=== PATIENT | female | born 1995 | race African-American/Black ===

== ENCOUNTER 2017-03-19 23:43 | Day surgery (SDC) | payer MEDICAID, SELFPAY ==
[2017-03-20 00:20] VITALS: BMI 38.2
[2017-03-20] MEDS ORDERED: Morphine 10 MG/ML VIAL SLOW IVP SCH (01:00)
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
== END 2017-03-20 05:25 | disposition home or self-care (01) ==
LOC: L&D/OP 23:43
PROVIDERS: ATTEND Obstetrics & Gynecology
DX: O9A.212 Injury, poisoning and certain other consequences of external causes complicating pregnancy, second trimester (principal); S39.91XA Unspecified injury of abdomen, initial encounter; Z79.899 Other long term (current) drug therapy; Z3A.25 25 weeks gestation of pregnancy; W22.8XXA Striking against or struck by other objects, initial encounter
CPT/HCPCS: 36415; 76805; 85460; 96374; 99283; J2270

== ENCOUNTER 2018-10-07 21:36 | Emergency (ER) | payer MEDICAID ==
[~2018-10-07 21:36] MED LIST: ISOVUE-370 76%-LOCM 1 ML ONE
[2018-10-07] MEDS ORDERED: Adacel (T-DAP) 0.5 ML SYRINGE ONE (21:57)
[2018-10-07 21:58] LABS: #Eosinphils 0.1 thou/uL (0.0-0.7); #Monocytes 0.6 thou/uL (0.11-0.59); #Neutrophils 6.5 thou/uL (1.40-6.50); %Basophils 0.4 % (0.0-1.0); %Lymphocytes 21.5 % (21.0-51.0); %Monocytes 6.6 % (0.0-10.0); %Neutrophils 70.6 % (42.0-75.0); Mean Corpuscular HGB CONC 32.5 g/dL (32.0-36.0); Mean Corpuscular Hemoglobin 26.1 pg (27.0-31.0); Mean Corpuscular Volume 80.5 fL (78.0-98.0); Mean Platelet Volume 8.9 fL (7.4-10.4); Platelet Count 251 thou/uL (130-400); RBC Distribution Width 15.3 % (11.5-14.5); White Blood Cell (WBC) Count 9.2 thou/uL (4.8-10.8)
[2018-10-07 22:07] LABS: BHCG - Serum Negative (NEGATIVE); Pregs Control Background? CLEAR/WHITE (CLR/WHITE); Pregs Control Bar Appear? YES (CONTROL BAR)
[2018-10-07] MEDS ORDERED: Fentanyl 100 MCG/2 ML VIAL ONE (22:12)
[2018-10-07 22:13] LABS: ALT (SGPT) 13 U/L (8-55); AST (SGOT) 17 U/L (5-34); Alkaline Phosphatase 112 U/L (40-150); Anion Gap 13 mmol/L (10-20); BUN (Urea Nitrogen) 6 mg/dL (7.0-18.7); Bilirubin, Total 0.4 mg/dL (0.2-1.2); Calc. Creatinine Clearance 0 mL/min (70-130); Calcium 9.4 mg/dL (7.8-10.44); Carbon Dioxide 20 mmol/L (22-29); Chloride 108 mmol/L (98-107); Estimated GFR-MDRD Greater than 90; Glucose 95 mg/dL (70-105); Potassium 3.1 mmol/L (3.5-5.1); Sodium 138 mmol/L (136-145)
[2018-10-07 22:15] LABS: Bilirubin Negative (Negative); Blood, Urine Negative (Negative); Clarity Clear (Clear); Glucose, Urine (Dipstick) Normal (Negative); Leukocyte 25 Leu/uL (Negative); Nitrite Negative (Negative); Protein, Urine (Dipstick) 30 mg/dL (Neg-Trace); RBC/HPF 0-3 HPF (0-3); Urobilinogen Normal mg/dL (Less than 2)
[2018-10-07 22:21] LABS: Bacteria/HPF 1+ HPF (None Seen)
--- NOTE | 2018-10-07 22:37 | CT ---
Head CT without contrast: 10/07/2018 COMPARISON: None HISTORY: Trauma TECHNIQUE: Axial CT imaging at 5 mm intervals from vertex through skull base without contrast FINDINGS: Imaged paranasal sinuses/mastoid air cells well-aerated. No displaced calvarial fracture. N o intracranial hemorrhage, midline shift, mass effect, or ventricular enlargement. IMPRESSION: No acute findings.
--- NOTE | 2018-10-07 22:38 | RAD ---
3 views right shoulder: 10/07/2018 COMPARISON: None HISTORY: Trauma FINDINGS: No fracture or dislocation. No radiopaque foreign body or subcutaneous gas. IMPRESSION: No acute findings.
--- NOTE | 2018-10-07 22:41 | CT ---
Cervical spine CT without contrast: 10/07/2018 COMPARISON: None HISTORY: Injury, trauma, pain TECHNIQUE: Axial CT imaging at 2.5 mm intervals from skull base through lung apices with coronal and sagittal reformatted imaging FINDINGS: The craniocervical junction, atlantoaxial interspace, occipital condyles, dens, C1-2 articu lation, and cervicothoracic junction appear unremarkable. Cervical vertebral body height and alignment appears within normal limits. No prevertebral soft tissue swelling, acute fracture, or evid ence of dislocation. Imaged lung apices are unremarkable. IMPRESSION: No acute findings. Results called to Dr. Garcia 10:40 PM 10/07/2018.
--- NOTE | 2018-10-07 22:46 | CT ---
CT of chest, abdomen, pelvis, thoracic spine, lumbar spine: 10/07/2018 COMPARISON: None HISTORY: Injury, trauma, pain TECHNIQUE: Axial CT imaging at 5 mm intervals from thoracic inlet through pubic symphysis with huggins l and sagittal reformatted imaging. Study performed with IV contrast. FINDINGS: No lymphadenopathy in the chest. No pleural, pericardial, or mediastinal fluid. Vascular st ructures of the chest appear patent. No pneumothorax evident on either side. Lung parenchyma is grossly unremarkable bilaterally. No endobronchial lesion is seen. Extraspinal osseous structures of the chest appear unremarkable. No free intraperitoneal air. Liver, gallbladder, spleen, pancreas, adrenal glands, and kidneys are un remarkable. Limited assessment of the bowel appears unremarkable. There is trace free fluid in the pelvis, likely physiologic in nature. Vascular structures of the abdomen and pelvis appear unremarkable. No abdominal or pelvic lymphadenop athy. Osseous structures of the pelvis appear unremarkable. Thoracic spine: No fracture or dislocation Lumbar spine: No fracture or dislocation. IMPRESSION: No acute findings within the chest, abdomen, pelvis, thoracic spine, or lumbar spine. Dr. Campos made aware 10:42 PM 10/07/2018
--- NOTE | 2018-10-09 15:45 | EKG ---
Test Reason : Blood Pressure : / mmHG Vent. Rate : 113 BPM Atrial Rate : 113 BPM P-R Int : 148 ms QRS Dur : 078 ms QT Int : 332 ms P-R-T Axes : 061 012 032 degrees QTc Int : 455 ms Sinus tachycardia Possible Left atrial enlargement Left ventricular hypertrophy Abnormal ECG Confirmed by RICARDO CALDERÓN, FACUNDO ([id number]), photography editor MAURICE REDDY ([id number]) on 10/09/2018 3:45:04 PM Referred By: Confirmed By:FACUNDO SILVA MD
== END 2018-10-07 23:40 | disposition home or self-care (01) ==
LOC: ERS 21:36
DX: S43.401A Unspecified sprain of right shoulder joint, initial encounter (principal); V49.9XXA Car occupant (driver) (passenger) injured in unspecified traffic accident, initial encounter
CPT/HCPCS: 36415; 70450; 71260; 72125; 74177; 80053; 81003; 81015; 83605; 84703; 85025; 90471; 90715; 93005; 96361; 96374; G0390; J3010; Q9966